=== PATIENT | female | born 1940 | race Caucasian/White ===

== ENCOUNTER 2018-07-11 13:49 | Emergency (ER) | payer OTHER ==
[2018-07-11 14:11] VITALS: BP 184/83
--- NOTE | 2018-07-11 14:41 | ED Physician Documentation ---
History of Present Illness - Stated complaint Stated Complaint: HIGH BP - Chief complaint Chief Complaint: General - History obtained from History obtained from: Patient - History of Present Illness Timing: Chronic Pain level max: 0 Pain level now: 0 - Additonal information Additional information: 77-year-old female presents to the emergency department with asymptomatic hypertension. She states she has had high blood pressure for a long time. She is here visiting and returns home tomorrow. Noticed that her blood pressure has been high for the past several weeks. No chest pain. No visual changes. No shortness of breath. Has occasional headaches but none currently. She is on hydrochlorothiazide at home. Nothing makes it better or worse Review of Systems Constitutional: denies: Fever, Chills Eyes: denies: Decreased vision, Photophobia Cardiac: denies: Chest pain / pressure, Palpitations Respiratory: denies: Cough Skin: denies: Rash Musculoskeletal: denies: Neck pain, Back pain Neurologic: denies: Headache PD PAST MEDICAL HISTORY - Past Medical History Past Medical History: Yes Cardiovascular: Hypertension - Past Surgical History Past Surgical History: No - Present Medications Home Medications: Ambulatory Orders Medication Instructions Recorded Confirmed Hydrochlorothiazide 12.5 mg PO 07/11/18 - Allergies Allergies/Adverse Reactions: Allergies Allergy/AdvReac Type Severity Reaction Status Date / Time No Known Drug Allergies Allergy Verified 07/11/18 14:10 - Living Situation Living Situation: reports: With family Living Arrangement: reports: At home - Social History Does the pt smoke?: No Does the pt drink ETOH?: No Does the pt have substance abuse?: No PD ED PE NORMAL - Vitals Vital signs reviewed: Yes - General General: Alert and oriented X 3, No acute distress - HEENT HEENT: Moist mucous membranes - Neck Neck: Supple, no meningeal sign - Cardiac Cardiac: RRR, Strong equal pulses - Respiratory Respiratory: No respiratory distress, Clear bilaterally - Abdomen Abdomen: Soft, Non tender, Non distended - Derm Derm: Warm and dry - Extremities Extremities: No edema - Neuro Neuro: Alert and oriented X 3, neighborhood conservation officer 2-12 intact, No motor deficit, No sensory deficit, Normal speech Results - Vitals Vitals: Vital Signs - 24 hr 07/11/18 14:02 Temperature 36.4 C L Heart Rate 105 H Respiratory 14 Rate Blood Pressure 184/83 H O2 Saturation 100 Oxygen O2 Source Room air PD MEDICAL DECISION MAKING - ED course Complexity details: considered differential, d/w patient ED course: 77-year-old female with asymptomatic hypertension. We will have her follow-up with her doctor for further evaluation and care. No emergency medical condition at this time. We will have her keep a log of her blood pressures at home. Patient counseled regarding signs and symptoms for which I believe and urgent re-evaluation would be necessary. Patient with good understanding of and agreement to plan and is comfortable going home at this time This document was made in part using voice recognition software. While efforts are made to proofread this document, sound alike and grammatical errors may occur. Departure - Departure Disposition: 01 Home, Self Care Clinical Impression: Hypertension Qualifiers: Hypertension type: unspecified Qualified Code(s): I10 - Essential (primary) hypertension Condition: Good Instructions: ED HTN Established Follow-Up: Provider,Other [Primary Care Provider] - Within 1 week Comments: Please keep a log of your blood pressures for your doctor. Return if you worsen. Return especially for chest pain, difficulty breathing or changes in your vision. Discharge Date/Time: 07/11/18 15:00
== END 2018-07-11 15:00 | disposition home or self-care (01) ==
LOC: ED 13:49
DX: I10 Essential (primary) hypertension (principal)
CPT/HCPCS: 99282; 99283